=== PATIENT | male | born 1950 | race Caucasian/White ===

== ENCOUNTER 2020-01-25 14:25 | Outpatient (CLI) | payer MEDICARE, SELFPAY ==
--- NOTE | ~2020-01-25 | XR_ITS ---
XR knee LT 3V DATE: 01/25/2020 14:49 INDICATION: Bilateral generalized knee pain TECHNIQUE: 3 views COMPARISON: None FINDINGS: No fracture or dislocation or joint effusion. No periosteal reaction or bone destruction. J oint spaces are preserved. No radiopaque intra-articular loose body or chondrocalcinosis. IMPRESSION: No significant abnormality Reviewed, dictated and finalized at location B. IMPRESSION: No significant abnormality
--- NOTE | ~2020-01-25 | XR_ITS ---
XR knee RT 3V DATE: 01/25/2020 14:49 INDICATION: Bilateral generalized knee pain TECHNIQUE: 3 views COMPARISON: None FINDINGS: No fracture or dislocation or joint effusion. No periosteal reaction or bone destruction. J oint spaces are preserved. No radiopaque intra-articular loose body. Possible minimal chondrocalcinos is at the patellofemoral joint. IMPRESSION: Possible minimal chondrocalcinosis at the patellofemoral joints; otherwise negative Reviewed, dictated and finalized at location B. IMPRESSION: Possible minimal chondrocalcinosis at the patellofemoral joints; ot herwise negative
[2020-01-25 15:42] LABS: Alanine Aminotransferase 23 U/L (4-50); Albumin Level 4.5 g/dL (3.5-5.1); Alkaline Phosphatase 55 U/L (38-126); Anion Gap 12.7 mmol/L (7-16); Aspartate Amino Transferase 27 U/L (17-59); Bilirubin,Total 0.4 mg/dL (0.2-1.3); Blood Urea Nitrogen 19 mg/dL (9-20); CRP < 0.5 mg/dL (<1.0); Calcium 9.5 mg/dL (8.4-10.2); Carbon Dioxide 31 mmol/L (22-30); Chloride 96 mmol/L (98-107); Estimated Glomerular Filt Rate > 60; Glucose 238 mg/dL (75-110); Potassium 3.7 mmol/L (3.4-5.0); Sodium 136 mmol/L (137-145); Uric Acid 3.3 mg/dL (3.5-8.5)
[2020-01-25 16:09] LABS: Erythrocyte Sedimentation Rate 15 mm/hr (0-20)
[2020-01-28 09:52] LABS: Anti Cyclic Citrullinated Pept <16 Units (<20)
== END 2020-01-25 14:26 | disposition home or self-care (01) ==
LOC: ANHIMG 14:31
PROVIDERS: PCP Internal Medicine; Visit Provider Internal Medicine
DX: M15.9 Polyosteoarthritis, unspecified (principal)
CPT/HCPCS: 36415; 73562; 80053; 84550; 85652; 86038; 86140; 86200